=== PATIENT | female | born 1965 | race American Indian/Alaskan Native ===

== ENCOUNTER 2016-04-27 12:57 | Emergency (ER) | payer OTHER ==
--- NOTE | 2016-04-27 16:18 | Emergency Department Report ---
Chief Complaint: Extremity Injury, Upper Stated Complaint: RT ARM SWELLING/PAIN - HPI History of Present Illness: 50-year-old female past medical history DVT left upper extremity currently taking Zarrella to presents with 3 days of pain and swelling and right upper extremity similar to symptoms of a prior DVT. Patient sent by her primary doctor to ED for Doppler to rule out new DVT right upper extremity. Patient on 20 mg of Xarelto to daily currently. - ROS Review of Systems: Diagnosed with left upper extremity DVT within the last month by PCP - Exam Vital Signs: Vital Signs 04/27/16 13:23 Temperature 99.1 F Pulse Rate 76 Respiratory 18 Rate Blood Pressure 136/80 O2 Sat by Pulse 99 Oximetry Physical Exam: Minor swelling and pain right upper extremity MSE screening note: Focused history and physical exam performed. Due to findings the following was ordered: Screening Assessment/Plan/Differential Dx: Possible new right upper extremity DVT 1- This initial assessment/diagnostic orders/clinical plan/ treatment(s) is/are subject to change based on pt's health status, clinical progression and re- assessment by fellow clinical providers in the ED. Further treatment and workup at subsequent clinical provers discretion. Patient/guardians urged not to elope from ED as their condition may be serious if not clinically assessed and managed. 2-right upper extremity Doppler ultrasound ordered for DVT assessment 3-patient is already technically being treated with Xarelto ED Disposition for MSE Condition: Stable
[2016-04-27 23:34] VITALS: BP 130/70
--- NOTE | 2016-04-27 23:52 | Emergency Department Report ---
ED General Adult HPI - General Chief complaint: Extremity Injury, Upper Stated complaint: RT ARM SWELLING/PAIN Time Seen by Provider: 04/27/16 23:26 Source: patient Mode of arrival: Ambulatory Limitations: No Limitations - History of Present Illness Initial comments: Patient is a 50-year-old female with history of left upper extremity DVT on Xarelto presenting today because of mild swelling in her right axilla. Patient states that this is similar but not as bad as when she developed her initial symptoms for her left upper extremity DVT. She called her doctor who sent her here for evaluation with an ultrasound. Patient denies any chest pain, shortness of breath, numbness, weakness. - Related Data Allergies Allergy/AdvReac Type Severity Reaction Status Date / Time No Known Allergies Allergy Unverified 05/01/15 08:39 ED Review of Systems ROS: Stated complaint: RT ARM SWELLING/PAIN Other details as noted in HPI Comment: All other systems reviewed and negative Constitutional: denies: chills, fever Respiratory: denies: cough, shortness of breath Cardiovascular: denies: chest pain, palpitations, syncope Gastrointestinal: denies: abdominal pain, vomiting Genitourinary: denies: urgency Skin: denies: rash Neurological: denies: headache Psychiatric: denies: anxiety ED Physical Exam - General Limitations: No Limitations General appearance: alert, in no apparent distress - Head Head exam: Present: atraumatic - Neck Neck exam: Present: normal inspection - Respiratory Respiratory exam: Present: normal lung sounds bilaterally. Absent: respiratory distress - Cardiovascular Cardiovascular Exam: Present: regular rate, normal rhythm - GI/Abdominal GI/Abdominal exam: Present: soft. Absent: distended, tenderness - Extremities Exam Extremities exam: Present: other (no objective signs of swelling in the right upper extremity, or axilla area, no fluctuance or tenderness in the axilla, no overlying erythema, warmth or significant swelling, sensation intact distally, strength intact 5 out of 5 proximal and distal right upper extremity, radial pulses 2+) - Neurological Exam Neurological exam: Present: alert, oriented X3, normal gait - Psychiatric Psychiatric exam: Present: normal affect ED Course Vital Signs 04/27/16 04/27/16 04/27/16 13:23 23:33 23:52 Temperature 99.1 F Pulse Rate 76 73 Respiratory 18 18 18 Rate Blood Pressure 136/80 Blood Pressure 130/70 [Left] O2 Sat by Pulse 99 100 100 Oximetry ED Medical Decision Making - Medical Decision Making Preliminary DVT study had been posted and does not show any signs of DVT. Patient is neurovascularly intact and does not have any pain. She is already on xarelto for the prior DVT. We will discharge the patient home with follow- up with her primary care doctor. Patient agrees with plan. Critical care attestation.: If time is entered above; I have spent that time in minutes in the direct care of this critically ill patient, excluding procedure time. ED Disposition Clinical Impression: Right axillary swelling Disposition: DISCHARGED TO HOME OR SELFCARE Is pt being admited?: No Does the pt Need Aspirin: No Condition: Stable Instructions: Deep Venous Thrombosis (ED) Additional Instructions: Your workup here showed no blood clot in the right upper extremity. Please follow-up with your primary care doctor in the next 3-5 days. Return to the emergency room to have severe pain, numbness, difficulty moving the extremity, chest pain or difficulty breathing. Referrals: PRIMARY CARE, [Primary Care Provider] - 3-5 Days
--- NOTE | 2016-04-29 13:37 | Vascular Lab Report ---
RIGHT UPPER EXTREMITY VENOUS DUPLEX: REASON FOR EXAM: Right arm pain COMMENTS ON THE RIGHT: All arm veins visualized are freely compressible without evidence of internal echogenicity. The subclavian and internal jugular veins are free of thrombus. Flow is spontaneous and phasic throughout. COMMENTS ON THE LEFT: The subclavian and internal jugular veins are free of thrombus. IMPRESSION: No evidence of acute or chronic deep venous thrombosis in the right upper extremity.
== END 2016-04-27 23:56 | disposition home or self-care (01) ==
LOC: ED 12:57
DX: R22.31 Localized swelling, mass and lump, right upper limb (principal)